=== PATIENT | female | born 1950 | race Caucasian/White ===

== ENCOUNTER → 2018-03-31 12:33 | Outpatient (CLI) | payer MEDICARE, OTHER | END | disposition home or self-care (01) | LOC: D.RAD 12:33 | DX: M25.561 Pain in right knee (principal) ==

== ENCOUNTER → 2019-04-20 15:09 | Outpatient (CLI) | payer MEDICARE, BC | END | disposition home or self-care (01) | LOC: D.LABREF 15:09 | PROVIDERS: ATTEND Orthopaedic Surgery | DX: M17.11 Unilateral primary osteoarthritis, right knee (principal) ==